=== PATIENT | male | born 1945 | race Caucasian/White ===

== ENCOUNTER → 2017-05-02 | Outpatient (CLI) | payer OTHER, MEDICARE | LOC: MMPC 09:00 | PROVIDERS: ATTEND Internal Medicine | DX: Z79.01 Long term (current) use of anticoagulants (principal); Z51.81 Encounter for therapeutic drug level monitoring; I48.91 Unspecified atrial fibrillation | CPT/HCPCS: 85610 ==

== ENCOUNTER 2017-10-26 13:20 | Inpatient (IN) ==
[2017-10-26] MEDS ORDERED: NORMAL SALINE 10 ML SYRINGE FLUSH IVP PRN ×5 (13:42→17:02)
[2017-10-26] MEDS ORDERED: Sodium Chloride 0.9% 1,000 ML PRIMARY IV ONE ×4 (13:42→17:02)
--- NOTE | 2017-10-26 14:08 | PDOC ---
General Adult HPI - General Chief Complaint: General Medical Stated Complaint: dehydration Date Seen by Provider: 10/26/17 Time Seen by Provider: 13:40 Source: POSITIVE: Patient Exam Limitations: POSITIVE: No limitations Nurse's Notes Reviewed & Considered: Yes - History of Present Illness Initial Comment: The patient is a 72-year-old male who presents to the emergency department with possible dehydration. Approximately 2 weeks ago he had developed an abscess in her right upper molar. He had been started on pain medication and antibiotics and saw his dentist last Saturday at which time the tooth was pulled. He is continued to be on antibiotics since then. He continues to have some bloody drainage from the extraction site. He reports continued pain as well. He has had a difficult time eating very much over the past couple of weeks. In addition he has not been taking in a lot of fluid. He has developed generalized weakness and general malaise. He denies lightheadedness or passing out. He denies chest pain or headache. He quit taking all of the pain medication a couple of days ago. He does have a history of previous valve surgery on his heart and is chronically anticoagulated with Coumadin. He had been off Coumadin for the dental extraction and restarted several days ago. Have you received a tetanus shot in the past 10 years?: Unknown - Patient Home Medications Home Medications: Home Medications Allopurinol 300 mg ORAL QD tab 12/17/11 Carvedilol 25 mg ORAL BID tab 12/17/11 Coumadin 1.5 mg PO . DIRECTED 12/17/11 Digoxin 125 mcg ORAL QD tab 12/17/11 Glipizide 5 mg ORAL QD tab 12/17/11 Lisinopril 20 mg ORAL BID tab 12/17/11 Metformin Hcl 1,000 mg PO DAILY 12/17/11 Simvastatin 40 mg ORAL QD tab 12/17/11 Warfarin Sodium [Coumadin] 2.5 mg ORAL QD tab 12/17/11 Nitroglycerin SL Tab [Nitrostat Sl Tab] 0.4 mg BUCCAL ONCE tab 11/15/15 Hydrocodone Bit/Acetaminophen [Hydrocodon-Acetaminoph 7.5-325] 1 - 2 tab PO Q4H PRN 10/26/17 - Patient Allergies Allergies/Adverse Reactions: Allergies 3 Allergy/AdvReac Type Severity Reaction Status Date / Time No Known Drug Allergies Allergy NOT Verified 10/18/17 10:57 APPLICABLE Past Medical History - heen HEENT History: Denies History Cardiovascular History: Hypertension, CHF, CAD, Arrhythmia, Valvular Heart Disease, Hyperlipidemia, Other (please comment) Additional Cardiovasular History: Mitral Valve Repair, Cardiomegaly. Respiratory History: Denies History Gastrointestinal History: Denies History Genitourinary History: Denies History Endocrine History: Type 2 Diabetes (oral) Musculoskeletal History: Gout Prosthesis or Implant: No Neurological History: Denies History Blood Disorders: Denies History Psychiatric History: Denies History History of Sexually Transmitted Diseases: No Cancer History: Denies History In Past Year Been Physically Harmed or Verbally Threatened: No History of MDRO: No History of Other Communicable Diseases: No Tobacco Use: Never Smoker Alcohol Use: Occasionally In the Past 12 Months, Have Used or Abuse Any Substance: None Anesthesia Reactions: No Malignant Hyperthermia: No Past Medical History Reviewed: Reviewed - No Changes ROS - Limitations ROS Limitations: No Limitations Constitution: DENIES: Chills, Fever Cardiovascular: DENIES: Chest Pain, Heart Palpitations, Edema Respiratory: REPORTS: Denies Resp Symptoms Neurological: DENIES: Dizziness, Numbness, Weakness Gastrointestinal: REPORTS: Nausea, Other (Decreased oral intake) Genitourinary: REPORTS: Denies Symptoms Eyes: REPORTS: Denies Symptoms ENT: REPORTS: Dental Pain. DENIES: Sore Throat Skin: DENIES: Rash General Adult Exam - General Appearance General Appearance: POSITIVE: Alert, Cooperative, No Acute Distress, Other (He does appear ill) - HEENT HEENT: POSITIVE: Head Inspection Nml, Eyes Inspection Nml, Ears Inspection Nml, Nose Inspection Nml, Pharynx Inspect. Nml, Dry Mucous Membranes, Other (Dental extraction site in the right upper area with gauze in place which is soaked with blood tinged fluid) - Neck Neck: POSITIVE: Normal Inspection. NEGATIVE: Lymphadenopathy - Respiratory Respiratory: POSITIVE: No Respiratory Distress, Breath Sounds Normal - Cardiovascular Cardiovascular: POSITIVE: Regular Rate & Rhythm, No Murmur Peripheral Pulses: Dorsalis-pedis (R): 2+, Dorsalis-pedis (L): 2+ - Abdomen Abdomen: Soft: (All Quadrants), Denies Tenderness: (All Quadrants) - Skin Skin: POSITIVE: Normal Color, No Rash - Extremities Extremity: Normal ROM: (All Extremities), Normal Inspection: (All Extremities) General Adult Progress - Results Reviewed by me Lab Results Reviewed by Me: Yes CBC and BMP: 10/26/17 14:00 10/26/17 14:00 EKG Interpretation:: POSITIVE: Normal Sinus Rhythm, Normal QRS, Normal ST/T, Other (Sinus bradycardia, normal T waves) - Patient's Progress MDM / ED Course: The patient did appear clinically dehydrated on arrival an IV was established and he received a 1 L bolus of normal saline. Labs were drawn and subsequently revealed a potassium of 7.2. His BUN was also elevated at 48 with a creatinine of 1.4. His creatinine previously had run in the 0.8-0.9 range and his potassium is always been normal. Because of the elevated potassium an EKG was obtained which shows sinus bradycardia without any other acute ST segment, T- wave or QRS changes. In addition further history revealed that he is still taking digoxin and a digoxin level was checked and was found to be 1.6. Because of the elevated potassium he was given calcium gluconate 1 g IV as well as insulin 10 units IV followed by an amp of D50. He also received Kayexalate 15 g by mouth. I did discuss the patient with Dr. Che and he is agreed to admit the patient. He had contacted the cam maker in [place] who had recommended Digibind. He was given 1 vial ([address] Che has agreed to admit the patient for further treatment. - Consult Counseled: POSITIVE: Patient, Family, RE: Lab Results, RE: DX, RE: Need for F/U Patient Care Time - Estimated PCT Patient Care Time (In Minutes): 60 Vital Signs - Recent Vital Signs Vital Signs: Vital Signs (Last 8 hours) Temp Pulse Pulse Resp BP Pulse Ox 10/26/17 16:14 56 L 10/26/17 13:39 97.6 F 71 18 93/65 93 - VS Reviewed Vital Signs Reviewed: Yes Discharge Clinical Impression: Hyperkalemia, Dehydration, Atrial fibrillation, Elevated INR Discharge Disposition: Admit to Inpatient Condition: Fair Date Decision to Admit to Inpatient: 10/26/17 Time Decision to Admit to Inpatient: 16:15
[2017-10-26 14:38] LABS: BASOPHILS # (AUTO) 0.04 10*3/UL; BASOPHILS % (AUTO) 0.5 % (0-1); EOSINOPHILS # (AUTO) 0.14 10*3/UL; Hematocrit [HCT] 41.5 % (42.0-52.0); Hemoglobin [HGB] 13.4 g/dL (14.0-18.0); LYMPHOCYTES # (AUTO) 2.85 10*3/uL; MEAN CORPUSCULAR HEMOGLOBIN 28.7 PG (27-31); MEAN CORPUSCULAR HGB CONC 32.2 g/dL (33-37); MEAN CORPUSCULAR VOLUME 89 FL (80-90); MEAN PLATELET VOLUME 8.8 FL (7.4-12.2); MONOCYTES # (AUTO) 0.53 10*3/UL (0.3-0.8); MONOCYTES % (AUTO) 7.5 % (5-15); NEUTROPHILS # (AUTO) 3.56 10*3/UL; PLATELET MORPHOLOGY COMMENT NORMAL MORPHOLOGY (NORM); RBC MORPHOLOGY COMMENT NORMAL MORPHOLOGY (NORM); RED BLOOD COUNT 4.66 10^6/uL (4.70-6.10); WBC MORPHOLOGY COMMENT NORMAL MORPHOLOGY (NORM)
[2017-10-26 14:41] LABS: BLOOD UREA NITROGEN 48 mg/dL (7-22); BUN/CREATININE RATIO 34.28 (6-20); MAGNESIUM 2.4 mg/dL (1.6-2.4); SERUM ALBUMIN 4.6 g/dL (3.5-4.8)
--- NOTE | 2017-10-26 14:57 | EKG ---
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
[2017-10-26] MEDS ORDERED: INSULIN REGULAR, HUMAN 100 UNIT/1 ML - 3 ML IV ONE (15:53)
[2017-10-26] MEDS ORDERED: CALCIUM GLUCONATE 100 MG/1 ML - 10 ML IVP PRN ×2 (15:54→17:02)
[2017-10-26] MEDS ORDERED: SODIUM POLYSTYRENE SULFONATE 15 GM/60 ML PO ONE (15:54)
[2017-10-26] MEDS ORDERED: DEXTROSE 50%-WATER SYRINGE 50 ML SYRINGE IVP ONE (15:54)
[2017-10-26] MEDS ORDERED: LIDOCAINE W/ SODIUM BICARB 0.5 ML SYR SUBD PRN ×2 (16:10→17:02)
[2017-10-26] MEDS ORDERED: SODIUM CHLORIDE 0.9% IV ONE (16:13)
[2017-10-26] MEDS ORDERED: DIGOXIN IMMUNE FAB IV ONE (16:13)
[2017-10-26] MEDS ORDERED: LIDOCAINE HCL 2 % 10 ML JELLY URO-JECT TOPICAL PRN ×3 (16:14→17:02)
[2017-10-26] MEDS ORDERED: Sodium Chloride 0.9% 1,000 ML PRIMARY IV SCH (16:15)
--- NOTE | 2017-10-26 16:19 | PDOC ---
HPI - History of Present Illness History of Present Illness: This very nice 82-year-old gentleman with past medical history significant for coronary artery disease and previous valve surgery with the anticoagulation on board Coumadin INR is 4.3 is therapeutic. 2 weeks ago he had developed an abscess in the right upper molar was started on pain medication and antibiotics tooth was pulled. Continues to have bloody drainage but over the past couple weeks he has not been taking in fluids or eating much presents to the ER with general weakness did not pass out. His labs revealed hyperkalemia and acute renal failure most likely from dehydration Past Medical History Medical History: Hypertension, CHF, CAD, Arrhythmia, Valvular Heart Disease, Hyperlipidemia. Surgical History: Mitral Valve Repair, Cardiomegaly. Tobacco Use: Never Smoker Do you dip or chew tobacco: Yes (1can/3-4days) In the Past 12 Months, Have Used or Abuse Any of the Following Substance: None Alcohol Use: None Medication / Allergies Home Medications: Home Medications Medication Instructions Recorded Confirmed Type Allopurinol 300 mg ORAL QD tab 12/17/11 10/26/17 History Carvedilol 25 mg ORAL BID tab 12/17/11 10/26/17 History Coumadin 1.5 mg PO . DIRECTED 12/17/11 10/26/17 History Digoxin 125 mcg ORAL QD tab 12/17/11 10/26/17 History Glipizide 5 mg ORAL QD tab 12/17/11 10/26/17 History Lisinopril 20 mg ORAL BID tab 12/17/11 10/26/17 History Metformin Hcl 1,000 mg PO DAILY 12/17/11 10/26/17 History Simvastatin 40 mg ORAL QD tab 12/17/11 10/26/17 History Warfarin Sodium [Coumadin] 2.5 mg ORAL QD tab 12/17/11 10/26/17 History Nitroglycerin SL Tab [Nitrostat 0.4 mg BUCCAL ONCE tab 11/15/15 10/18/17 History Sl Tab] Hydrocodone Bit/Acetaminophen 1 - 2 tab PO Q4H PRN 10/26/17 10/26/17 History [Hydrocodon-Acetaminoph 7.5-325] Allergies/Adverse Reactions: Allergies 3 Allergy/AdvReac Type Severity Reaction Status Date / Time No Known Drug Allergies Allergy NOT Verified 10/18/17 10:57 APPLICABLE Review of Systems - Review of Systems All Systems: Reviewed & No Additional Complaints Except as Stated - Respiratory Respiratory: DENIES: Negative System Review, Cough, Sputum, Dyspnea At Rest, Dyspnea with Exertion, Pleuritic Pain, Hemoptysis, Wheezing, Other, See HPI - Cardiovascular Cardiovascular: DENIES: Negative System Review, Chest Pain, Edema, Syncope, Palpitations, Orthopnea, Paroxysmal Nocturnal Dyspnea, Other, See HPI - Gastrointestinal Gastrointestinal / Abdominal: DENIES: Negative System Review, Nausea, Vomiting, Diarrhea, Constipation, Abdominal Pain, Bloody Stool, Poor Appetite, Heartburn, Regurgitation, Bloating, Lactose Intolerance, Melena, Bright Red Blood per Rectum, Other, See HPI Exam - Vitals Vital Signs: Vital Signs Temperature 97.6 F Temperature Source Temporal Artery Scan Pulse Rate [Pulse Oximeter] 71 Pulse Rate 56 Respiratory Rate 18 Blood Pressure [Left Arm] 93/65 Pulse Ox 93 Oxygen Delivery Method Room Air Height 5 ft 6 in Weight 150 lb - General General Appearance: No Acute Distress, Cooperative - Head Head Exam: Normal Inspection, Normocephalic, Atraumatic - Eye Eye Exam: POSITIVE: Normal Appearance, PERRL, EOMI, No Scleral Icterus - Neck Neck Exam: Normal Inspection, Full ROM, No Tenderness, No Lymphadenopathy, No Thyromegaly, JVP is not Raised - Respiratory Respiratory Exam: POSITIVE: Clear to Auscultation - Bilaterally, Breathing Non Labored, Normal To Percussion, Normal to Percussion and Palpation - Cardiovascular Cardiovascular Exam: POSITIVE: RRR, No Murmur, No Clicks, No Gallops, No Rubs, PMI Non-Displaced - GI/Abdominal GI/Abdominal Exam: POSITIVE: Normal Bowel Sounds, Non Tender, Non Distended, Soft, No Masses, No Hepatomegaly, No Splenomegaly, No Organomegaly - Extremities Extremities Exam: POSITIVE: Normal Inspection, Full ROM, Normal Capillary Refill , No Clubbing Present, No Edema Present, No Cyanosis Present, Negative Aldair's sign, Dosalis Pedis Pulses - Stong & Regular Results - Labs CBC and BMP: 10/26/17 14:00 10/26/17 20:35 Assessment and Plan - Patient Problems (1) HARPAL (acute kidney injury) Current Visit: Yes Status: Acute Comment: Patient is very dry most likely prerenal we'll give normal saline 1 L bolus then 125 an hour and recheck labs by 1800 if not better yet consider transferring to our [facility] discuss case with Dr. Salas should be around 6 x 8 o'clock Code(s): N17.9 - Acute kidney failure, unspecified (2) Hyperkalemia Current Visit: Yes Status: Acute Comment: See above Code(s): E87.5 - Hyperkalemia (3) Dental abscess Current Visit: No Status: Acute Code(s): K04.7 - Periapical abscess without sinus (4) Atrial fibrillation Current Visit: Yes Status: Chronic Comment: Hold Coumadin at present time Code(s): I48.91 - Unspecified atrial fibrillation
[2017-10-26] MEDS ORDERED: HYDROcodone-APAP 7.5 MG-325 MG TABLET PO PRN (17:02)
[2017-10-26 18:27] LABS: BLOOD UREA NITROGEN 44 mg/dL (7-22); BUN/CREATININE RATIO 36.66 (6-20); SERUM ALBUMIN 4.1 g/dL (3.5-4.8)
--- NOTE | 2017-10-26 19:07 | DI ---
EXAM: US Retroperitoneal Limited, Renal CLINICAL HISTORY: Physician Notes: Tech Comments: TECHNIQUE: Real-time ultrasound of the retroperitoneum (limited) with image documentation. COMPARISON: No relevant prior studies available. FINDINGS: Right kidney: Normal in size, 10.1 centimeters in length. No stones. No solid mass. No hydronephrosis. Left kidney: Normal in size, 10.4 cm in length. Question of a small nonobstructing mid zone calculus, though shadowing is not well- demonstrated. No solid mass. No hydronephrosis. Urinary bladder: Decompressed by Granados catheter, not well assessed. IMPRESSION: Possible nonobstructing mid zone left renal calculus. Otherwise unremarkable exam.
[2017-10-26] MEDS: Sodium Chloride 0.9% 1,000 ML PRIMARY IV SCH (20:56)
[2017-10-26] MEDS ORDERED: CARVEDILOL 12.5 MG TABLET PO SCH (21:00)
[2017-10-26 21:07] LABS: BLOOD UREA NITROGEN 39 mg/dL (7-22); BUN/CREATININE RATIO 35.45 (6-20)
[2017-10-26 23:10] LABS: BLOOD UREA NITROGEN 37 mg/dL (7-22)
[2017-10-26 23:11] LABS: SERUM ALBUMIN 3.8 g/dL (3.5-4.8)
[2017-10-27] MEDS ORDERED: SODIUM BICARBONATE 8.4% - 50 ML ADULT SYRINGE IVP ONE (00:08)
[2017-10-27] MEDS ORDERED: SODIUM POLYSTYRENE SULFONATE 15 GM/60 ML PO ONE (00:14)
[2017-10-27] MEDS: Sodium Chloride 0.9% 1,000 ML PRIMARY IV SCH ×4 (04:13→23:14)
[2017-10-27] MEDS ORDERED: ONDANSETRON 4 MG/2 ML VIAL IVP PRN ×2 (04:25→11:58)
[2017-10-27 06:15] LABS: BLOOD UREA NITROGEN 32 mg/dL (7-22); BUN/CREATININE RATIO 35.55 (6-20)
[2017-10-27 06:17] LABS: Hematocrit [HCT] 38.1 % (42.0-52.0); Hemoglobin [HGB] 12.5 g/dL (14.0-18.0); MEAN CORPUSCULAR HEMOGLOBIN 29.1 PG (27-31); MEAN CORPUSCULAR HGB CONC 32.6 g/dL (33-37); MEAN CORPUSCULAR VOLUME 89 FL (80-90); RED BLOOD COUNT 4.28 10^6/uL (4.70-6.10)
[2017-10-27 06:18] LABS: BASOPHILS # (AUTO) 0.03 10*3/UL; BASOPHILS % (AUTO) 0.4 % (0-1); EOSINOPHILS # (AUTO) 0.12 10*3/UL; EOSINOPHILS % (AUTO) 1.6 % (0-8); LYMPHOCYTES # (AUTO) 2.12 10*3/uL; MEAN PLATELET VOLUME 8.7 FL (7.4-12.2); MONOCYTES # (AUTO) 0.54 10*3/UL (0.3-0.8); NEUTROPHILS # (AUTO) 4.91 10*3/UL; NEUTROPHILS % (AUTO) 63.6 % (50-80); PLATELET MORPHOLOGY COMMENT NORMAL MORPHOLOGY (NORM); RBC MORPHOLOGY COMMENT NORMAL MORPHOLOGY (NORM); WBC MORPHOLOGY COMMENT NORMAL MORPHOLOGY (NORM)
[2017-10-27 11:20] LABS: BLOOD UREA NITROGEN 28 mg/dL (7-22); SERUM ALBUMIN 3.9 g/dL (3.5-4.8)
--- NOTE | 2017-10-27 12:07 | PDOC(PROG) ---
Interval History: Patient is doing much better no complaints and no pain Objective : Data - Labs CBC and BMP: 10/27/17 05:50 10/27/17 11:02 Objective : Exam - General General Appearance: Cooperative - Head Head Exam: Normal Inspection - Eye Eye Exam: Normal Appearance, PERRL, EOMI, No Scleral Icterus - Respiratory Respiratory Exam: Clear to Auscultation - Bilaterally, Breathing Non Labored, Normal To Percussion, Normal to Percussion and Palpation - Cardiovascular Cardiovascular Exam: RRR, No Murmur, No Clicks, No Gallops, No Rubs, PMI Non- Displaced - GI/Abdominal GI/Abdominal Exam: Normal Bowel Sounds, Non Tender, Non Distended, Soft, No Masses, No Hepatomegaly, No Splenomegaly, No Organomegaly - Extremities Extremities Exam: No Clubbing Present, No Edema Present - Neurological Neurological Exam: Alert, Oriented x 3, Reflexes Normal, Normal Gait, CN II-XII Intact, No Facial Droop, Moves All Extremities Equally - Psychiatric Psychiatric Exam: Normal Affect, Normal Mood Assessment and Plan - Patient Problems (1) HARPAL (acute kidney injury) Current Visit: Yes Status: Acute Comment: Now improved. Renal continue hydration still hold off kidney affecting drugs Code(s): N17.9 - Acute kidney failure, unspecified (2) Hyperkalemia Current Visit: Yes Status: Acute Comment: Improved Code(s): E87.5 - Hyperkalemia (3) Dental abscess Current Visit: No Status: Acute Code(s): K04.7 - Periapical abscess without sinus (4) Atrial fibrillation Current Visit: Yes Status: Chronic Comment: On Coumadin and beta reji INR 5 range Code(s): I48.91 - Unspecified atrial fibrillation
[2017-10-27] MEDS ORDERED: NORMAL SALINE 10 ML SYRINGE FLUSH IVP PRN (17:54)
[2017-10-27 22:19] LABS: BLOOD UREA NITROGEN 21 mg/dL (7-22); SERUM ALBUMIN 3.4 g/dL (3.5-4.8)
[2017-10-28 04:52] VITALS: O2SAT 92
[2017-10-28] MEDS: Sodium Chloride 0.9% 1,000 ML PRIMARY IV SCH (07:46)
[2017-10-28 10:38] VITALS: BP 98/66; RESP 14; TEMP 98
--- NOTE | 2017-10-28 10:52 | DCSUMMARY ---
Hospitalization Summary Hospital Course: Final Discharge Diagnosis: Current Visit Problems Problem Status Onset Code HARPAL (acute kidney injury) Acute N17.9 Hyperkalemia Acute E87.5 Dehydration Acute E86.0 Elevated INR Acute R79.1 Atrial fibrillation Chronic I48.91 Diagnostic Data, Laboratory Data, and Procedures of Signifigance: Laboratory Results 10/27/17 10/27/17 10/27/17 Range/Units 11:02 11:02 22:08 PT 62.7 H (9.7-11.4) secs INR 5.81 (0.00-5.90) N/A Sodium 142 140 (135-145) meq/L Potassium 5.1 4.7 (3.8-5.2) meq/L Chloride 112 109 (98-112) meq/L Carbon Dioxide 21 L 22 L (23-33) meq/L Anion Gap 9 9 (5-20) BUN 28 H 21 (7-22) mg/dL Creatinine 0.8 0.7 (0.70-1.50) mg/dL BUN/Creatinine Ratio 35.00 H 30.00 H (6-20) Glucose 192 H 93 (78-110) mg/dL Calculated Osmolality 304.0 H 292.0 (267-292) mOsm/kg Calcium 8.6 L 8.3 L (8.7-10.7) mg/dL Total Bilirubin 0.5 0.4 (0.3-1.2) mg/dL AST 59 H 43 (21-57) IU/L ALT 61 56 (21-72) IU/L Alkaline Phosphatase 130 H 109 (38-126) IU/L Total Protein 7.3 6.6 (6.1-8.0) g/dL Albumin 3.9 3.4 L (3.5-4.8) g/dL Globulin 3.5 3.2 (2.50-4.10) g/dL Albumin/Globulin Ratio 1.10 L 1.00 L (1.3-2.0) mg/g Digoxin 1.3 (0.8-2.0) ng/mL 10/28/17 Range/Units 10:12 PT 37.2 H (9.7-11.4) secs INR 3.47 (0.00-5.90) N/A Sodium (135-145) meq/L Potassium (3.8-5.2) meq/L Chloride (98-112) meq/L Carbon Dioxide (23-33) meq/L Anion Gap (5-20) BUN (7-22) mg/dL Creatinine (0.70-1.50) mg/dL BUN/Creatinine Ratio (6-20) Glucose (78-110) mg/dL Calculated Osmolality (267-292) mOsm/kg Calcium (8.7-10.7) mg/dL Total Bilirubin (0.3-1.2) mg/dL AST (21-57) IU/L ALT (21-72) IU/L Alkaline Phosphatase (38-126) IU/L Total Protein (6.1-8.0) g/dL Albumin (3.5-4.8) g/dL Globulin (2.50-4.10) g/dL Albumin/Globulin Ratio (1.3-2.0) mg/g Digoxin (0.8-2.0) ng/mL History and Physical pertinent to Admission: Course of Hospitalization: This is a very nice 72-year-old gentleman with past medical history significant for atrial fibrillation on chronic anticoagulation and hypertension and 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 Had a tooth abscess which was evacuated but because of his high INR and kept on losing blood and because of the pain he had over the last 2 weeks he did not have any oral intake and normally drinks very little water. The patient comes in with a hyperkalemia with a potassium of 7.4 dig toxicity and acute renal failure and dehydration. Is a 70 H were held his allopurinol and simvastatin were held patient was hydrated aggressively treated with insulin calcium channel blockers Kayexalate a monitored very closely in the ICU and is indices likely all came back to normal values. Ultrasound of his kidney showed no obstruction. Patient is back to his normal self with the abnormal labs no acute findings at this point his INR is supratherapeutic he will be holding his Coumadin and calling his doctor to adjust it further. On the date of discharge, the patient was examined: Gen.: No acute distress, alert, nontoxic Heart: Regular rate and rhythm, no murmurs, clicks, gallops, or rubs Lungs: Clear to auscultation bilaterally, breathing is nonlabored Abdomen/GI: Normal tones on auscultation, soft, nontender, nondistended Musculoskeletal/extremities: No clubbing, cyanosis, or edema Vitals reviewed and are listed below Vital Signs (24 hrs) Temp Pulse Pulse Resp BP BP Pulse Ox 10/28/17 10:38 98 F 63 14 98/66 92 10/28/17 07:00 70 10/28/17 04:51 98.2 F 57 L 18 97/59 92 10/28/17 03:23 73 10/27/17 23:00 84 10/27/17 20:23 99.1 F 63 16 108/60 93 10/27/17 19:00 64 10/27/17 15:19 73 10/27/17 13:26 75 10/27/17 11:00 75 16 114/70 90 Assessment and Plan: 1. As per discharge assessments above 2. Disposition: Home 3. Condition on discharge, stable and improved. 4. Diet: regular diet 5. Activities: resume normal activities 6. Follow-Up: 1. PCP 2. 7. Medications at the Time of Discharge: Home Medications Medication Instructions Recorded Confirmed Type Carvedilol 25 mg ORAL BID tab 12/17/11 10/26/17 History Coumadin 1.5 mg PO . DIRECTED 12/17/11 10/26/17 History Glipizide 5 mg ORAL QD tab 12/17/11 10/26/17 History Lisinopril 20 mg ORAL BID tab 12/17/11 10/26/17 History Metformin Hcl 1,000 mg PO DAILY 12/17/11 10/26/17 History Simvastatin 40 mg ORAL QD tab 12/17/11 10/26/17 History Warfarin Sodium [Coumadin] 2.5 mg ORAL QD tab 12/17/11 10/26/17 History Nitroglycerin SL Tab [Nitrostat 0.4 mg BUCCAL ONCE tab 11/15/15 10/18/17 History SL Tab] Hydrocodone Bit/Acetaminophen 1 - 2 tab PO Q4H PRN 10/26/17 10/26/17 History [Hydrocodon-Acetaminoph 7.5-325] 3 Generic Name Dose Route Start Last Admin Trade Name Freq PRN Reason Stop Dose Admin Sodium Chloride 1,000 mls @ 125 mls/hr 10/27/17 11:58 10/28/17 07:46 Normal Saline PRIMARY IV 125 mls/hr .Q8H JESSIE Administration Ondansetron HCl 4 mg 10/27/17 11:58 Zofran Inj IVP Q6H PRN NAUSEA / VOMITING Sodium Chloride 5 ml 10/27/17 17:54 10/27/17 18:10 Saline Flush IVP 5 ml BID PRN Administration Flush 8. Time, care, counseling and coordination of care for this discharge is greater than 30 minutes. Exam - Vitals Vital Signs: Vital Signs Temperature 98 F Temperature Source Temporal Artery Scan Pulse Rate [Pulse Oximeter] 75 Pulse Rate 63 Respiratory Rate 14 Blood Pressure [Right Arm] 114/70 Blood Pressure 98/66 Pulse Ox 92 Oxygen Flow Rate RA Oxygen Delivery Method Room Air Height 5 ft 6 in Weight 160 lb 11.2 oz Patient Problems - Patient Problem List (1) HARPAL (acute kidney injury) Current Visit: Yes Status: Acute Code(s): N17.9 - Acute kidney failure, unspecified Category: Medical (2) Hyperkalemia Current Visit: Yes Status: Acute Code(s): E87.5 - Hyperkalemia Category: Medical (3) Dental abscess Current Visit: No Status: Acute Code(s): K04.7 - Periapical abscess without sinus Category: Medical (4) Atrial fibrillation Current Visit: Yes Status: Chronic Code(s): I48.91 - Unspecified atrial fibrillation Category: Medical
== END 2017-10-28 11:52 | disposition home or self-care (01) | DRG 641 ==
LOC: ER 13:20 → MED/SURG 16:10 → ICU 16:50 → MED/SURG 10-27 11:53
PROVIDERS: ADMIT Internal Medicine; ATTEND Internal Medicine